=== PATIENT | female | born 1975 ===

== ENCOUNTER 2024-09-22 06:12 | Day surgery (SDC) | payer OTHER ==
[~2024-09-22] VITALS: Ht 165.1 cm; Wt 60.0 kg
[~2024-09-22 06:12] MED LIST: MIDAZOLAM HCL 5 MG/5 ML VIAL IV PRN; fentaNYL citrate 100 MCG/2 ML VIAL IV PRN
[2024-09-22 06:32] VITALS: BP 120/58
[2024-09-22] MEDS ORDERED: VITAMIN D350 MCG PO (06:37)
[2024-09-22] MEDS ORDERED: VITAMIN B-12100 MCG PO (06:37)
[2024-09-22] MEDS ORDERED: ZINC30 MG PO (06:38)
[2024-09-22] MEDS ORDERED: STOOL SOFTENER100 M1 PO (06:38)
[2024-09-22] MEDS ORDERED: MIDAZOLAM HCL 5 MG/5 ML VIAL ONE (06:41)
[2024-09-22] MEDS ORDERED: fentaNYL citrate 100 MCG/2 ML VIAL ONE (06:41)
[2024-09-22] MEDS ORDERED: IBLOOD GLUCOSE TEST STRIP 1 EA TEST VI PRN (07:00)
[2024-09-22] MEDS ORDERED: LIDOCAINE HCL 1% 5 ML SDV INJ ONE (07:00)
[2024-09-22] MEDS ORDERED: LACTATED RINGER'S 1,000 ML IV SCH (07:00)
--- NOTE | 2024-09-22 07:37 | NUR ---
PT NOT AVAILABLE FOR VISIT. PROVIDED PRAYER.
--- NOTE | 2024-09-22 07:51 | NUR ---
09/22/24 Lora1 Tracy Su 0740-PATIENT ARRIVED TO PACU ON 3L NC RR EVEN. PATIENT REACTIVE TO VERBAL STIMULI OPENING EYES VERY DROWSY. DENIES PAIN OR NAUSEA. ENCOURAGED TO PASS GAS. EASILY DOZES BACK TO SLEEP. 0745-PATIENT SLEEPING 3L NC 100% APNEA AROUSES TO VERBAL STIMULI TAKES DEEP BREATHES. IVF INFUSING. PASSING GAS. DOZES BACK TO SLEEP. 0748-PATIENT AROUSING TO VERBAL STIMULI REPOSITIONED ON BACK. BP RETAKEN DENIES PAIN OR NAUSEA. 3L NC 100% DOZES BACK TO SLEEP
--- NOTE | 2024-09-22 08:28 | OR ---
[facility] [address] [place], [place] [address] Signed DATE OF OPERATION: 09/22/2024 SURGEON: Tiffany Miranda MD PREOPERATIVE DIAGNOSES: 1. Changes in bowel habits with worsening constipation. 2. Lower abdominal pain. POSTOPERATIVE DIAGNOSIS: Minimal internal hemorrhoids. PROCEDURE: Colonoscopy without biopsy. ESTIMATED BLOOD LOSS: None. INDICATIONS: John is a 49-year-old female from the [facility]. She was asked to see me for a colonoscopy. She said for many years she had three bowel movements each week. For some reason, she thought that was not enough. In the last six months or so, she feels like her constipation has been worse. She increased her water intake and added some prune juice and now probiotic. She is trying to have a bowel movement every day. She will sit on the toilet for 30 to 40 minutes waiting for the bowel movement. She is worried that she should not push after reading online. She has had a couple episodes of lower abdominal pain followed by the bowel movement. There is no pain at the anus or blood with the stool. She has had two children born vaginally. She remembers having an episiotomy. She feels like she has a sensation of fullness in the rectum, but the stool not come out. She does not describe any lumps around the anus. There is no family history of colon cancer or polyps. She told me her appendix was removed in 2019. She also talks about her uterine leiomyoma. In the office, I gave her a pamphlet on colonoscopy. We reviewed the nature of the test. There is risk including, but not limited to gas bloating, crampy abdominal pain, bleeding, perforation requiring surgery, and missed diagnosis. We also reviewed the written instructions for a bowel prep line by line. She also understands the need for IV conscious sedation. She understands an adult person has to take her home afterwards. It sounds like that will be her . She had expressed understanding and wished to proceed. DESCRIPTION OF PROCEDURE: John was taken into our endoscopy suite and placed in the left lateral decubitus Electronically Signed By: TIFFANY MIRANDA MD 09/22/24 0828 PATIENT NAME: JOHN GUERRA OPERATIVE REPORT DATE OF : 77 REPORT #: [id number] PHYSICIAN: TIFFANY MIRANDA MD PCP: KAVITHA BOATENG PA-C REPORT IS CONFIDENTIAL AND NOT TO BE RELEASED WITHOUT AUTHORIZATION [facility] [address] [place] [id number] Signed position. She was given 3 mg of Versed and 100 mcg of fentanyl to cover the case. A digital rectal exam was performed. There were no external hemorrhoids. She had good sphincter tone. I carefully examined circumference of the sphincter and I could not feel any defect in the sphincter muscles. The perineal body appears to be intact. There were no masses. After this, the adult colonoscope was introduced and advanced under direct visualization of the camera. It took a little abdominal compression to get the scope around and into the cecum itself. Her prep was quite excellent. One could easily see the appendiceal orifice and the ileocecal valve. The scope was slowly withdrawn. We saw no pathology throughout the entire colon or rectum. We had just enough room in her short rectum to retroflex the scope. She has minimal internal hemorrhoids. After this, the gas was suctioned out and the colonoscope removed. John tolerated the procedure quite well. RECOMMENDATIONS: I will see John back in my office in 7 to 14 days to review her results. If she wants to pursue further workup, she will need advance testing. Tiffany Miranda MD ALB/MODL /[id number] cc: JESUSITA Harris MD Copies: TIFFANY MIRANDA MD ~ Electronically Signed By: TIFFANY MIRANDA MD 09/22/24 0828 PATIENT NAME: JOHN GUERRA OPERATIVE REPORT DATE OF : 77 REPORT #: [id number] PHYSICIAN: TIFFANY MIRANDA MD PCP: KAVITHA BOATENG PA-C REPORT IS CONFIDENTIAL AND NOT TO BE RELEASED WITHOUT AUTHORIZATION
[2024-09-22 08:54] VITALS: BP 118/65
--- NOTE | 2024-09-22 10:57 | NUR ---
0850-PT BACK TO ROOM 9 FROM PACU ON RA. RECEIVED REPORT FROM ANGELITA JUNIOR. PT IS AWAKE. RESP EVEN AND UNLABORED. DENIES PAIN AND NAUSEA. PT TAKING SIPS OF WATER. CALL LIGHT WITHIN REACH.
--- NOTE | 2024-09-22 11:21 | NUR ---
0914-PT SITTING AT BEDSIDE. JALIL NAUSEA OR BEING DIZZY. PT WILL GET DRESSED. PARTNER IN ROOM.
--- NOTE | 2024-09-22 11:28 | NUR ---
0925-WENT OVER DISCHARGE WITH PT AND HER PARTNER. ALL QUESTIONS ANSWERED. PT AMBULATES TO WHEELCHAIR AND RIDE PROVIDED TO FRONT OF HOSPITAL WHERE HER PARTNER WAS WAITING WITH THE CAR.
== END 2024-09-22 09:26 | disposition home or self-care (01) ==
LOC: DS 06:12
PROVIDERS: ATTEND Colon & Rectal Surgery
PROC: 0DJD8ZZ Inspection of Lower Intestinal Tract, Via Natural or Artificial Opening Endoscopic (ICD-10-PCS; principal; 2024-09-22 07:30)
DX: K64.8 Other hemorrhoids (principal); K59.00 Constipation, unspecified; D25.9 Leiomyoma of uterus, unspecified; G43.909 Migraine, unspecified, not intractable, without status migrainosus
CPT/HCPCS: 99153; G0500; J2250; J3010